=== PATIENT | female | born 1970 | race Caucasian/White ===

== ENCOUNTER 2022-12-12 14:59 | Outpatient (AMB) | payer OTHER, SELFPAY ==
--- NOTE | 2022-12-12 15:13 | MHC.OFFVISWM ---
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 Her goal is improving her health.? She reports first being concerned about his/her weight during her 1st and has had difficulty losing weight over the past 20 years. She was placed on phentermine for 4-5 months several years ago but given no dietary education and had minimal weight loss. She has tried multiple methods of weight loss including WW, gym, portion control, fad diets and calorie restriction without permanent results. She lives with with her recently retired ; he is living part-time at their summer house in [place]. Her son is at home and her college age daughter occasionally is at home on weekends from [facility]. She purchases groceries and does any cooking but notes that with just her and her son, she does not frequently cook. Her intake weight was originally noted at 215 lbs/BMI 40 on 11/13/22 which is the heaviest of her adult life. 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 She does note new symptoms of diarrhea that she is attributed to irritable bowel syndrome, but denies symptoms prior to 6 months ago. She denies any blood or unexplained weight loss and is unaware of a family history of GI malignancy. She is interested in seeing a shipping and receiving specialist because she has done some reading and is unsure if she has food allergies, celiac or other reasons for this new diarrhea. She denies constipation. She denies lactose intolerance. She is not sure if she has hypertension and notes that she does not follow-up with her PCP regularly. She has been informed that her blood pressure is been elevated but is not currently being treated. Intolerance of dairy/lactose:??? N Gluten Sensitivity:? unknown? Celiac? unknown PMH: She has not seen her PCP in years PSH: denied She wakes at: 0630?bed at: 10pm to midnight Breakfast: skips Lunch: mostly skips, even when she brings a lunch Dinner: 630pm usuallly meat, chicken or fish and possibly vegs, seldom carbs After dinner: cracker, cheese-its Other snacks: chips, crackers Liquids: water & diet Coke Alcohol intake: ?3-4x/week? nicotine: quit cigs 20+ years ago? marijuana: denied? drugs: denied?? caffeine: Diet Coke 2-3/day Exercise: Has a membership at [employer] & was exercising through the summer, until URI illness Last mammogram: never Last pap smear: years control method: LMP Mar 2022 Colonoscopy: never, new diarrhea for the past 6 months. Would like to see GI realizing she is past due OMER: 0 ESS: 2 GERD: 0 QOL: 75 The patient is advised that vitamin or protein supplement samples maybe provided by Brook Downing RD to facilitate care options. PENDING SALE TO [facility] Surgical History Hx of section Review of Systems Const All systems reviewed & are unremarkable except as noted in HPI and below Reports as per HPI Physical Exam Vital Signs: Last Vital Signs Temp 97.6 F 12/12/22 15:23 Pulse 82 12/12/22 15:23 BP 128/76 12/12/22 15:23 Pulse Ox 96 12/12/22 15:23 Oxygen Delivery Method Room Air 12/12/22 15:23 BMI result Body Mass Index 39.9 The patient is non-toxic & in good spirits NC/AT, PERRLA, EOMI Mood, affect & judgment all appear appropriate Sclera anicteric conjunctiva pink and moist Oropharynx is clear with no aphthous ulcers, Mallampati class 4, mucous membranes moist Neck is supple with no masses, adenopathy or bruits Thyroid is nontender and free of dominant masses Heart is regular, normal S1-S2 no rubs or murmurs Lungs are clear and equal anteriorly with no audible wheezing, rubs or dullness to percussion Abdomen is overweight with no demonstrable hernias. No HSM, rebound, rigidity, guarding, masses or bruits are present. Rectal exam is deferred Skin has good turgor and is free of rashes Extremities free of cyanosis clubbing edema Assessment & Plan Assessment & Plan (1) BMI 40.0-44.9, adult: Code(s): Z68.41 - Body mass index [BMI] 40.0-44.9, adult (2) Well woman exam: Code(s): Z01.419 - Encounter for gynecological examination (general) (routine) without abnormal findings (3) Diarrhea: Code(s): R19.7 - Diarrhea, unspecified Plan Using a teaching blade grinder, we reviewed normal anatomy and physiology, as well as options regarding medical weight loss, Orbera balloon, and surgical options including laparoscopic sleeve gastrectomy and laparoscopic gastric bypass. The patient is interested in laparoscopic sleeve gastrectomy. The importance of diet and increased activity to optimize surgical weight loss was reviewed. The fact that weight regain will occur if maladaptive eating, especially a high carbohydrate/high-fat diet was discussed and the patient's questions seemed to be answered. The patient was unaware that her diarrhea needs to be investigated given its new onset and her and requested Referral to Gastroenterology. She had some questions regarding celiac which is deferred to GI. Patient states she has never had a mammogram and has not see a industrial servicer recently and requested I facilitate referrals. Preop Bariatric Plan 1.?? Nutritional counseling:?Be sure to careful read the number of scoops per shake if you are using powdered mix.? Substitute Celebrate Rebuild Protein Shakes & Bars for Zone Perfect bar in the printout. Start with? Celebrate ReBuild Protein shakes First shake (2 scoops in 16 oz unsweetened almond milk) at 7-9am Second shake, (2 scoops in 16 oz unsweetened almond milk) at Noon-2pm 1 protein bar Celebrate ReBuild bars at 3-4pm. Dinner at 4pm (10 forks of protein and 10 forks of salad/vegetables). Meal to include lean meat (beef, fish, pork, turkey, chicken), cooked vegetables or a salad with olive oil and/or fruits (berries, pears, apples, kiwi). Avoid breads, potatoes, starches, rice, pasta, desserts.? The sooner you decrease carbohydrates & excess fats, the sooner you will reach your goal. 2.?? You must closely monitor your blood glucose/pressure at least twice a day. After dinner snacking should be Celebrate ReBuild protein bar if needed. Try to drink 64 oz of water daily and avoid soda and juices. ?2. Each shake would be drunk slowly, like coffee in a period of 2 hours. ?3. Cut each bar in 4 pieces and eat each piece in 30 min to make each bar last 2 hours. ?4. I emphasized the importance of measuring accurately the food portion and measure it carefully when serving the food on the plate ?5. The meal portions include 10 full-size forks of meat and 10 full-size forks of salad. You should always eat the meat portion but you can skip the forks of salad/vegetables and replace with a fruit if you like. The less you do it the better weight loss will be. ?6. One full-size fork is what can be scooped on the fork without falling aside and not what can be bit with the fork. Use regular forks like those you find in a typical restaurant. ?7.? Please send me weight measurements as soon as possible and then once a week. Always include your diet and exercise plan. Alternatively come weekly at the office for weight checks and send me the measurements. ?8. Exercise counseling:? Begin by watching a stretching for beginner?s video.? Start slowly and begin to stretch your muscles.? You should do this before and after each exercise session to prevent injury.? Please use the exercise equipment at your building. Start elliptical with a resistance of 2. Increase resistance by 1 every 3 min to your most comfortable resistance with a max resistance of 8.? Reduce the resistance by 1 every 3 minutes back down to 2 and repeat cycles for 300 calories. Alternatively, start treadmill with a speed of 3.0 and incline of 0, increasing incline by 1 every 3 minutes to the highest comfortable level (max 6 for now) then decrease in the same fashion.? Repeat process to a goal of 300 calories.? Goal of 2000 calories burned or more weekly.? You may also consider use of the stationary bike.? The easiest would be to choose the fat-burn or interval training program on the machine and do this until you reach the 300 calorie goal.? Alternatively, you can manually adjust the resistance in a similar fashion as mentioned above, (resistance of 2-8 with a goal speed of 12 mph).?Tracking calories is essential. 9. Alternatively, start walking outside daily, tracking calories with a goal of 300 calories per day, daily. If [id number] is needed, you can start there, but the goal is DAILY. You can download the estela?[employer]?which can track your time, distance and calories while walking outside.? You press start in the estela when you start and then stop when you are finished. ? 10.? It is important to avoid and for at least 18 months postoperatively and it has been discussed at the information session 11. Please get labs, EKG and chest X-Ray within 1 week. 12. Discussed and answered all questions regarding?obtained consent to participate in the [facility]?Registry. 13. Please follow the diet plan exactly, without any change.? If you do not like something about the plan or you feel hungry, you need to communicate with me so I can help you revise the plan.? You should not change the plan yourself. 14. Goal is to lose 1.5-2.0 lbs/week 15. Goal is to lose 10% of your weight before surgery, which is about 21 lbs. Ultimate weight goal: 195 lbs before surgery.? Remember that you may need to lose more weight to qualify for surgery if your abdominal ultrasound shows your liver or spleen are enlarged or if your upper GI shows a hiatal hernia. IF YOU EXPERIENCE PAIN, SEVERE SHORTNESS OF BREATH, DIZZINESS OR LIGHTHEADEDNESS, OR SIGNIFICANT CONSTIPATION OR DIARRHEA, (DIARRRHEA CAN OCCUR FROM SOME ARTIFICIAL SWEETENERS) PLEASE NOTIFY THE OFFICE! Orders: Orders Lipid Panel Today Z68.41 - Body mass index [BMI] 40.0-44.9, adult IRON PROFILE Today Z68.41 - Body mass index [BMI] 40.0-44.9, adult Vitamin B12 and Folate Today Z68.41 - Body mass index [BMI] 40.0-44.9, adult Zinc Today Z68.41 - Body mass index [BMI] 40.0-44.9, adult Comprehensive Met. Panel Today Z68.41 - Body mass index [BMI] 40.0-44.9, adult Vitamin B1 Today Z68.41 - Body mass index [BMI] 40.0-44.9, adult C Reactive Protein Today Z68.41 - Body mass index [BMI] 40.0-44.9, adult PTHI Today Z68.41 - Body mass index [BMI] 40.0-44.9, adult H Pylori Breath Test Today Z68.41 - Body mass index [BMI] 40.0-44.9, adult Hemoglobin A1c Today Z68.41 - Body mass index [BMI] 40.0-44.9, adult US abdomen comp w elastography Today Z68.41 - Body mass index [BMI] 40.0-44.9, adult FL upper GI w air Today Z68.41 - Body mass index [BMI] 40.0-44.9, adult Insulin Today Z68.41 - Body mass index [BMI] 40.0-44.9, adult Complete Blood Count Auto Diff Today Z68.41 - Body mass index [BMI] 40.0-44.9, adult Vitamin A Today Z68.41 - Body mass index [BMI] 40.0-44.9, adult Ferritin Today Z68.41 - Body mass index [BMI] 40.0-44.9, adult TSH reflex Free T4 Today Z68.41 - Body mass index [BMI] 40.0-44.9, adult Vitamin D 25-OH Total Today Z68.41 - Body mass index [BMI] 40.0-44.9, adult XR chest 2V Today Z68.41 - Body mass index [BMI] 40.0-44.9, adult ECG 12 lead EKG Today Z68.41 - Body mass index [BMI] 40.0-44.9, adult Referrals Behavioral Health Referral Z68.41 - Body mass index [BMI] 40.0-44.9, adult Nutrition/Dietitian Referral Z68.41 - Body mass index [BMI] 40.0-44.9, adult Gastroenterology Referral R19.7 - Diarrhea, unspecified VETERANS' COORDINATOR Referral R19.7 - Diarrhea, unspecified, Z01.419 - Encounter for gynecological examination (general) (routine) without abnormal findings, Z68.41 - Body mass index [BMI] 40.0-44.9, adult Coding Level of Care Code New Pt Level 4 (23641) Diagnoses BMI 40.0-44.9, adult Z68.41 Well woman exam Z01.419 Diarrhea R19.7
[2022-12-12 15:23] VITALS: BP 128/76; PULSE 82; TEMP 36.4; O2SAT 96; BMI 39.9
== END 2022-12-12 16:29 | disposition home or self-care (01) ==
PROVIDERS: PCP Internal Medicine; Visit Provider Surgery
DX: E66.01 Morbid (severe) obesity due to excess calories (principal); Z68.39 Body mass index [BMI] 39.0-39.9, adult; Z01.419 Encounter for gynecological examination (general) (routine) without abnormal findings; R19.7 Diarrhea, unspecified
CPT/HCPCS: 99204

== ENCOUNTER 2023-01-07 09:17 | Outpatient (AMB) | payer OTHER, SELFPAY ==
--- NOTE | 2023-01-07 09:17 | MHC.WMTHER ---
Intake Intake Visit Reasons: VIDEO Intake Allergies No Known Allergies Allergy (Verified 12/12/22 15:31) [facility] Surgical History Hx of section Behavioral Health Assessment Weight Management Therapy Therapy Notes Details Patient is looking to have weight loss surgery to help improve her health and quality of life. She reported struggling with her weight for some time. Pt denied any mental health history or treatment of. She denied any problems with drugs or alcohol or disordered eating. Presenting Concerns Referral Source provider Reason for referral weight loss surgery evaluation Precipitating Event obesity Living Situation Current Living Situation Own At risk of losing current housing? No Satisfied with current living situation? Yes Comments Pt lives with her and 19 year old son. Food/Weight/Diet Expectations of change weight loss and maintenance History/Relationship with food Pt stated that she has struggled with consistency and yo yo dieting. She stated that she often does not eat enough during the day and then will overeat before bed around 9pm will snack (bag of chips, wine). History/Relationship with weight Pt is currently at her heaviest. She stated that she has struggled with loosing weight since she had her children 20 years ago. History/Relationship with dieting working out, self diets, WW, Phentermine Binge Eating Do you frequently eat large amounts of food in short periods of time, not feeling physically hungry? No Do you feel out of control when you eat a large amount of food in a short period of time? No Do you eat large amounts of food rapidly and typically alone? No Night Eating Do you wake up at least once during the night to eat? No If you wake up in the night, do you find that it is necessary to eat something in order to fall back asleep? No Do you have little or no appetite in the morning and feel very hungry in the evening, often overeating between dinner and when you go to bed? No Social History Family history and relationship Patient is and has two adult children. She has two younger brothers. Her father is overweight. She denied any history of trauma or abuse. 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 none Education Highest grade completed college Preferred learning style Auditory, Verbal, Written, Learn by doing and Visual Currently enrolled in educational program? No Interested in further educational program? No Employment Employment Status [employer] Wants help to find employment? No Meaningful activities [facility] Financial Situation Describe current financial situation Comfortable Financial assistance? None Service Service? No Mental Health and Addiction Treatment Current/Past substance abuse? No Current/Past addictive behavior concerns? No Medical and Physical Health Summary Physical exam in the last year? Yes Pain Screening Current pain? No Pain in the last few months? No Medications Is the patient compliant with medications? Not applicable Does the patient have Tello Guardian in place? Not applicable Does the patient use complimentary health approaches? No Trauma/Abuse History History of trauma? No Questionnaires PHQ-9 Over the last 2 weeks, how often have you been bothered by any of the following problems? 1. Little interest or pleasure in doing things: not at all 2. Feeling down, depressed, or hopeless: several days 3. Trouble falling or staying asleep, or sleeping too much: several days 4. Feeling tired or having little energy: several days 5. Poor appetite or overeating: more than half the days 6. Feeling bad about yourself - or that you are a failure or have let yourself or your family down: not at all 7. Trouble concentrating on things, such as reading the newspaper or watching television: not at all 8. Moving or speaking so slowly that other people could have noticed. Or the opposite - being so fidgety or restless that you have been moving around a lot more than usual: not at all 9. Thoughts that you would be better off or of hurting yourself in some way: not at all Total score: 5 Source: Developed by Drs. Arden Koenig, Bridgett Gonzalez, Shantanu Basurto and colleagues, with an educational sharmila from [employer]. Binge Eating Scale Group 1 A. I don't feel self-conscious about my wt. or body size when I'm with others. B. I feel concerned about how I look to others, but it normally does not make me fell disappointed with myself C. I do get self-conscious about my appearance and wt. which makes me feel disappointed in myself. D. I feel very self-conscious about my wt. and frequently I feel intense shame and disgust for myself. I try to avoid social contacts because of my self-consciousness. Response Group 1: C Group 2 A. I don't have any difficulty eating slowly in the proper manner. B. Although I seem to gobble down foods, I don't end up feeling stuffed because of eating to much. C. At times, I tend to eat quickly and then, I feel uncomfortably full afterwards. D. I have the habit of bolting down my food, without really chewing it. When this happens I usually feel uncomfortably stuffed because I've eaten to much. Response Group 2: C Group 3 A. I feel capable to control my eating urges when I want to. B. I feel like I have failed to control my eating more than the average person. C. I feel utterly helpless when it comes to feeling in control of my eating urges. D. Because I feel so helpless about controlling my eating I have become very desperate about trying to get control. Response Group 3: B Group 4 A. I don't have the habit of eating when I'm bored. B. I sometimes eat when I'm bored, but often I'm able to get busy and get my mind off food. C. I have a regular habit of eating when I'm bored, but occasionally, I can use some other activity to get my mind off eating. D. I have a strong habit of eating when I'm bored. Nothing seems to help me breath the habit. Response Group 4: B Group 5 A. I'm usually physically hungry when I eat something. B. Occasionally, I eat something on impulse even though I really am not hungry. C. I have the regular habit of eating foods, that I might not really enjoy, to satisfy a hungry feeling even though physically, I don't need the food. D. Although I'm not physically hungry, I get a hungry feeling in my mouth that only seems to be satisfied when I eat a food, like sandwich, that fills my mouth. Sometimes, when I eat the food to satisfy my mouth hunger, I then spit the food out so I won't gain weight. Response Group 5: B Group 6 A. I don't feel any guilt or self-hate after I overeat. B. After I overeat, occasionally I feel guilt or self-hate. C. Almost all the time I experience strong guilt or self-hate after I overeat. Response Group 6: B Group 7 A. I don't lose total control of my eating when dieting even after periods when I overeat. B. Sometimes when I eat a forbidden food on a diet, I feel like I blew it and eat even more. C. Frequently, I have the habit of saying to myself, I've blown it now, why not go all the way, when I overeat on a diet. When that happens I eat more. D. I have a regular habit of starting a strict diets for myself but I break the diets by going on an eating binge. My life seems to be either a feast or famine. Response Group 7: B Group 8 A. I rarely eat so much food that I feel uncomfortably stuffed afterwards. B. Usually about once a month, I each such a quantity of food, I end up feeling very stuffed. C. I have regular periods during the month when I eat large amounts of food, either at mealtime or at snacks. D. I eat so much food that I regularly feel quite uncomfortable after eating and sometimes a bit nauseous. Response Group 8: A Group 9 A. My level of calorie intake does not go up very high or go down very low on a regular basis. B. Sometimes after I overeat, I will try to reduce my caloric intake to almost nothing to compensate for the excess calories I've eaten. C. I have a regular habit of overeating during the night. It seems that my routine is not to be hungry in the morning but overeat in the evening. D. In my adult years, I have had week-long periods where I practically starve myself. This follows periods when I overeat. It seems I live a life of either feast or famine. Response Group 9: B Group 10 A. I usually am able to stop eating when I want to. I know when enough is enough. B. Every so often, I experience a compulsion to eat which I can't seem to control. C. Frequently, I experience strong urges to eat which I seem unable to control, but at other times I can control my eating urges. D. I feel incapable of controlling urges to eat. I have a fear of not being able to stop eating voluntarily. Response Group 10: A Group 11 A. I don't have any problem stopping eating when I feel full. B. I usually can stop eating when I feel full but occasionally overeat leaving me feeling uncomfortably stuffed. C. I have a problem stopping eating once I start and usually I feel uncomfortably stuffed after I eat a meal. D. Because I have a problem not being able to stop eating when I want, I sometimes have to induce vomiting to relieve my stuffed feeling. Response Group 11: A Group 12 A. I seem to eat just as much when I'm with others, Family social gatherings as when I'm by myself. B. Sometimes, when I'm with other persons, I don't eat as much as I want to eat because I'm self-conscious about my eating. C. Frequently, I eat only a small amount of food when others are present, because I'm very embarrassed about my eating. D. I feel so ashamed about overeating that I pick times to overeat when I know no one will see me. I feel like a closet eater. Response Group 12: B Group 13 A. I eat three meals a day with only an occasional between meal snack. B. I eat 3 meals a day, but I also normally snack between meals. C. When I am snacking heavily, I get in the habit of skipping regular meals. D. There are regular periods when I seem to be continually eating, with no planned meals. Response Group 13: A Group 14 A. I don't think much about trying to control unwanted eating urges. B. At least some of the time, I feel my thoughts are pre-occupied with trying to control my eating urges. C. I feel that frequently I spend much time thinking about how much I ate or about trying not to eat anymore. D. It seems to me that most of my waking hours are pre-occupied by thoughts about eating or not eating. I feel like I'm constantly struggling not to eat. Response Group 14: A Group 15 A. I don't think about food a great deal. B. I have strong craving for food but they last only for brief periods of time. C. I have days when I can't seem to think about anything else but food. D. Most of my days seem to be pre-occupied with thoughts about food. I feel like I live to eat. Response Group 15: A Group 16 A. I usually know whether or not I'm physically hungry. I take the right portion of food to satisfy me. B. Occasionally, I feel uncertain about knowing whether or not I'm physically hungry. A these times it's hard to know how much food I should take to satisfy me. C. Even though I might know how many calories I should eat, I don't have any idea what is a normal amount of food for me. Response Group 16: A Binge Eating Score: 11 Score less than 17 Minimal Risk Score between 18-26 Moderate Risk Score between 27-46 High Risk Assessment & Plan Assessment & Plan (1) Adjustment disorder, unspecified: Code(s): F43.20 - Adjustment disorder, unspecified (2) BMI 40.0-44.9, adult: Code(s): Z68.41 - Body mass index [BMI] 40.0-44.9, adult Plan Patient has no serious mental health barriers or prior history of any issues. She is cleared for surgery when ready. Telehealth Telehealth Location of provider rendering services: other Location of patient: other Patient Identification confirmed using: Name, : Yes Telehealth method: video Patient verbally consented to treatment: Yes Patient verbally consented to billing insurance company: Yes Patient informed of any privacy concerns related to visit: Yes Minutes spent on Phone/Video with Pt.: 45 Coding Level of Care Code Tele Psy Diag Eval (51974) Diagnoses Adjustment disorder, unspecified F43.20 BMI 40.0-44.9, adult Z68.41 Time Spent (min) 45
== END 2023-01-07 09:38 | disposition home or self-care (01) ==
PROVIDERS: PCP Internal Medicine; Visit Provider Counselor Mental Health
DX: F43.20 Adjustment disorder, unspecified (principal); Z68.41 Body mass index [BMI] 40.0-44.9, adult
CPT/HCPCS: 90791

== ENCOUNTER → 2023-01-13 15:29 | Outpatient (BNVA) | payer OTHER, SELFPAY | PROVIDERS: PCP Internal Medicine; Visit Provider Dietitian, Registered | DX: Z71.3 Dietary counseling and surveillance (principal) | CPT/HCPCS: 97802 ==

== ENCOUNTER 2023-01-17 08:54 | Outpatient (REF) | payer OTHER, SELFPAY ==
--- NOTE | ~2023-01-17 | US_ITS ---
EXAMINATION: US COMPLETE ABDOMEN WITH LIVER ELASTOGRAPHY CLINICAL INFORMATION: COMPARISON: None available. TECHNIQUE: Real-time imaging of the abdominal viscera. Noninvasive ultrasound liver fibrosis assessment is performed using Eh ElastPQ point quantification shear wave elastography (2D-SWE) with a C5-2 MHz transducer. Multiple elastography samples are obtained. FINDINGS: PANCREAS: Normal. The visualized pancreatic head and body are normal in appearance. The remainder of the pancreas is obscured from visualization by the overlying bowel gas. ABDOMINAL AORTA: The proximal, middle, and distal aortic segments are normal in caliber. INFERIOR VENA CAVA: Visualized portions are normal. LIVER: The liver demonstrates normal size, contour and generally increased echogenicity. No focal lesion or intrahepatic biliary duct dilatation. The right lobe measures 13.9 cm in length. The left lobe measures 10.5 cm in length. Portal flow is towards the liver (hepatopetal). Shear wave liver elastography median stiffness is 1.44 m/s (reference: normal median stiffness is 1.3 m/s or less). IQR/median stiffness to assess sampling precision is 0.12 (reference: good quality data set is IQR/median stiffness of 0.15 or less). GALLBLADDER: Normal. The gallbladder is physiologically distended without evidence of stones, sludge, polyps, wall thickening or pericholecystic fluid. COMMON BILE DUCT: Normal in caliber measuring 0.3 cm in diameter. RIGHT KIDNEY: Normal. No hydronephrosis. No renal calculi or focal parenchymal lesions. The kidney measures 11.5 cm in maximum dimension. LEFT KIDNEY: At the interpolar aspect, a 1.5 cm benign, simple cyst is seen. This requires no imaging follow-up. No hydronephrosis. No renal calculi or focal parenchymal lesions. The kidney measures 11.0 cm in maximum dimension. SPLEEN: Normal. The spleen measures 8.6 cm in maximum dimension. FREE FLUID: None. US/US abdomen comp w elastography IMPRESSION: 1. There is generalized increase in hepatic echotexture, consistent with fatty infiltration or hepatocellular disease. Please correlate clinically. No focal hepatic mass or intrahepatic biliary dilatation is seen. 2. Liver elastography: In the absence of other known clinical signs, measurements rule out compensated advanced chronic liver disease. If there are known clinical signs, further testing may be needed for confirmation. REFERENCE: Society of Radiologists in Ultrasound Liver Stiffness Thresholds (2020): LIVER STIFFNESS THRESHOLDS: *Liver Stiffness equal or less than 1.3 m/s: High probability of being normal. *Liver Stiffness less than 1.7 m/s: In the absence of other known clinical signs, rules out compensated advanced chronic liver disease. *Liver Stiffness 1.7-2.1 m/s: Suggestive of compensated advanced chronic liver disease but need further test for confirmation. *Liver Stiffness over 2.1 m/s: Rules in compensated advanced chronic liver disease. *Liver Stiffness over 2.4 m/s: Suggestive of clinically significant portal hypertension. QUALITY OF DATA SET: *IQR/Median value equal or less than 0.15 implies a quality data set. *IQR/Median value over 0.15 implies a poor quality data set. SIGNIFICANT CHANGE FROM PRIOR EXAM: Significant change if liver stiffness measurement is 10% or greater from prior exam. OTHER CONSIDERATIONS: The stage of liver fibrosis may be overestimated in the setting of acute hepatitis, liver inflammation, elevated liver function tests, hepatic vascular congestion, obstructive cholestasis, non-fasting state, and infiltrative diseases such as amyloidosis and lymphoma. In some patients with NAFLD, the liver stiffness thresholds for compensated advanced chronic liver disease may be lower. In causes other than viral hepatitis and NAFLD, liver stiffness thresholds are not well established.
--- NOTE | ~2023-01-17 | XR_ITS ---
EXAMINATION: XR CHEST CLINICAL INFORMATION: Obesity COMPARISON: None available. TECHNIQUE: 2 views of the chest were obtained. FINDINGS: No significant abnormality is noted involving the heart, lungs, mediastinum, bony thorax or soft tissues. XR/XR chest 2V IMPRESSION: Unremarkable examination.
[2023-01-17 10:10] LABS: MANUAL DIFF FLAG NO
--- NOTE | 2023-01-17 10:10 | ECG_ITS ---
Test Reason : high bmi Blood Pressure : / mmHG Vent. Rate : 069 BPM Atrial Rate : 069 BPM P-R Int : 138 ms QRS Dur : 088 ms QT Int : 416 ms P-R-T Axes : 033 010 034 degrees QTc Int : 445 ms Sinus rhythm with Premature atrial complexes RSR' or QR pattern in V1 suggests right ventricular conduction delay Abnormal ECG No previous ECGs available Referred By: Ned Polo Electronically Signed By:LIZETT KERN MD
[2023-01-17 10:52] LABS: Basophils Percent Auto 0.6 % (0-2); Eosinophils Absolute Auto 0.1 X10*3/uL (0.0-0.4); Eosinophils Percent Auto 2.1 % (0-4); Hemoglobin 14.1 g/dl (12.0-16.0); Imm Gran Abs Auto 0.02 X10*3/uL (0.00-0.03); Imm Gran Pct Auto 0.4 % (0.0-0.4); Lymphocytes Absolute Auto 1.2 X10*3/uL (1.2-4.9); Lymphocytes Percent Auto 22.2 % (20-40); Mean Corpuscular HGB Conc 35.3 g/dl (31.0-35.0); Mean Corpuscular Hemoglobin 33.8 pg (27.0-33.0); Mean Corpuscular Volume 95.9 fL (80.0-98.0); Monocytes Absolute Auto 0.4 X10*3/uL (0.1-1.2); Monocytes Percent Auto 8.2 % (2-11); Neutrophils Absolute Auto 3.5 x10*3/uL (2.0-8.3); Neutrophils Percent Auto 66.5 % (45-73); Platelet Count 231 X10*3/uL (160-400); Red Blood Count 4.17 X10*6/uL (4.20-5.50); Red Cell Distribution Width 12.3 % (11.0-16.0); White Blood Count 5.3 X10*3/uL (4.8-10.8)
[2023-01-17 11:00] LABS: Estimated Average Glucose 100 mg/dL; Hemoglobin A1c % 5.1 % (<6.0)
[2023-01-17 11:38] LABS: Alanine Aminotransferase 10 U/L (0-31); Albumin Level 4.3 g/dL (3.5-5.0); Alkaline Phosphatase 100 U/L (39-117); Anion Gap 11 (12-20); Aspartate Amino Transferase 22 U/L (5-31); Bilirubin Total 0.5 mg/dL (0.0-1.0); Blood Urea Nitrogen 15 mg/dL (9-16); C Reactive Protein 0.24 mg/dL (< or = 0.50); Carbon Dioxide 29 mmol/L (22-29); Chloride 106 mmol/L (96-108); Cholesterol 218 mg/dL (<200); Estimated Glomerular Filt Rate > 60; Glucose Random 111 mg/dL (60-115); HDL Cholesterol 62 mg/dL (>40); Iron 118 mcg/dL (30-160); LDL Cholesterol Calculated 132 mg/dL (<100); Percent Iron Saturation 38 % (15-50); Potassium 3.7 mmol/L (3.3-5.1); Sodium 142 mmol/L (135-145); Total Iron Binding Capacity 313 mcg/dL (228-428); Total Protein 6.9 g/dL (6.5-8.0); Triglycerides 121 mg/dL (<150); Unsaturated Iron Binding 195 ug/dL
[2023-01-17 11:57] LABS: Folate 4.4 ng/mL (> or = 4.0); Vitamin B12 302 pg/mL (200-900)
[2023-01-17 12:02] LABS: Ferritin 66 ng/mL (10-250); Insulin 6 uU/mL (2-29); TSH reflex Free T4 2.21 uIU/mL (0.32-4.0); Vitamin D 25-OH Total 32.6 ng/mL (>30)
[2023-01-20 12:52] LABS: Calcium (PTHI) 9.4 mg/dL (8.6-10.4); PTHI 18 pg/mL (16-77)
[2023-01-21 02:19] LABS: Zinc 74 mcg/dL (60-130)
[2023-01-21 17:58] LABS: Vitamin A 39 mcg/dL (38-98)
[2023-01-23 17:43] LABS: Vitamin B1 <6 nmol/L (8-30)
== END 2023-01-17 08:55 | disposition home or self-care (01) ==
LOC: HO.US 08:54
PROVIDERS: PCP Internal Medicine; Visit Provider Surgery
DX: E66.9 Obesity, unspecified (principal); Z68.41 Body mass index [BMI] 40.0-44.9, adult
CPT/HCPCS: 36415; 71046; 76705; 76981; 80053; 80061; 82306; 82607; 82728; 82746; 83036; 83525; 83540; 83970; 84425; 84443; 84590; 84630; 85025; 86140; 93005